=== PATIENT | female | born 1955 | race Caucasian/White ===

== ENCOUNTER 2025-10-19 12:29 | Inpatient (IN) | payer MEDICARE ==
[~2025-10-19] VITALS: Ht 157.4 cm; Wt 93.0 kg
[~2025-10-19 12:29] MED LIST: COUMADIN2.5 M1; LOZOL1.25 MG; SYNTHROID,LEVO25 MCG; WARFARIN SOD5 MG
[2025-10-19 12:36] VITALS: BP 190/84
[2025-10-19] MEDS ORDERED: Acetaminophen/Oxycodone 5 MG/325 MG TABLET PO ONE (13:25)
[2025-10-19] MEDS ORDERED: TRANEXAMIC ACID IN NACL,ISO-OS 100 ML IV ONE (14:30)
[2025-10-19] MEDS ORDERED: PHYTONADIONE 5 MG in SODIUM CHLORIDE 0.9% 50 ML IV ONE (14:30)
[2025-10-19 14:35] LABS: BASO # 0.1 10*3/uL (0.0-0.1); BASO % 0.4 % (0.0-1.0); EOS # 0.2 10*3/uL (0.0-0.4); EOS % 1.6 % (1.0-4.0); MEAN CELL VOLUME 92.0 fl (81.0-99.0); MEAN CORPUSCULAR HGB 29.4 pg (27.0-31.0); MEAN PLATELET VOLUME 9.8 fl (9.6-12.3); MONO # 0.6 10*3/uL (0.1-1.0); MONO % 4.4 % (3.0-9.0); NEUT # 11.8 10*3/uL (2.3-7.9); NEUT % 83.2 % (47.0-73.0); NUCLEATED RED BLOOD CELL 0.0 % (0.0-0.0); NUCLEATED RED BLOOD CELL 0.0 10*3/uL (0.0-0.0); PLATELET COUNT AUTOMATED 218 10*3/uL (130-400); RED CELL DISTRI WIDTH 13.4 % (0-14.5)
[2025-10-19 14:53] LABS: BUN 20 mg/dl (9-23)
[2025-10-19] MEDS ORDERED: Acetaminophen/Hydrocodone 5 MG/325 MG TABLET PO PRN (15:40)
[2025-10-19] MEDS ORDERED: BISACODYL 10 MG SUPP R PRN (15:40)
[2025-10-19] MEDS ORDERED: ACETAMINOPHEN 325 MG TAB PO PRN (15:40)
[2025-10-19] MEDS ORDERED: BISACODYL 5 MG TAB PO PRN (15:40)
[2025-10-19] MEDS ORDERED: ACETAMINOPHEN 650 MG SUPP R PRN (15:40)
[2025-10-19] MEDS ORDERED: PHYTONADIONE 10 MG/ML AMP ONE (15:43)
[2025-10-19 16:00] VITALS: BP 145/76
[2025-10-19] MEDS ORDERED: LEVOTHYROXINE175 MCG PO (16:39)
[2025-10-19] MEDS ORDERED: INDAPAMIDE2.5 MG PO (16:39)
[2025-10-19] MEDS ORDERED: GLIPIZIDE5 MG PO (16:40)
[2025-10-19] MEDS ORDERED: Coumadin3 MG PO ×2 (17:16→17:17)
[2025-10-19 20:00] VITALS: BP 154/63
[2025-10-20] VITALS (12 sets, daily range): BP systolic 132–165; BP diastolic 50–73
[2025-10-20 06:25] LABS: ACT PARTIAL THROMBO TIME 33.0 SECONDS (20.0-32.1)
[2025-10-20 06:30] LABS: BUN 18 mg/dl (9-23)
[2025-10-20 06:31] LABS: FREE T4 1.32 ng/dl (0.89-1.76); LDL CHOLESTEROL 113 mg/dL (9-159); SGPT/ALT 136 U/L (5-49)
[2025-10-20 06:48] LABS: BASO # 0.1 10*3/uL (0.0-0.1); BASO % 0.4 % (0.0-1.0); EOS # 0.3 10*3/uL (0.0-0.4); EOS % 2.9 % (1.0-4.0); MEAN CELL VOLUME 91.6 fl (81.0-99.0); MEAN CORPUSCULAR HGB 29.3 pg (27.0-31.0); MEAN PLATELET VOLUME 10.3 fl (9.6-12.3); MONO # 0.9 10*3/uL (0.1-1.0); MONO % 7.7 % (3.0-9.0); NEUT # 8.4 10*3/uL (2.3-7.9); NEUT % 75.0 % (47.0-73.0); NUCLEATED RED BLOOD CELL 0.0 % (0.0-0.0); NUCLEATED RED BLOOD CELL 0.0 10*3/uL (0.0-0.0); PLATELET COUNT AUTOMATED 225 10*3/uL (130-400); RED CELL DISTRI WIDTH 13.5 % (0-14.5)
[2025-10-20 07:25] LABS: VITAMIN D, 25-HYDROXY 23.6 ng/mL (30-100)
[2025-10-20] MEDS ORDERED: glipiZIDE 5 MG TAB PO SCH (07:30)
[2025-10-20] MEDS ORDERED: SODIUM CHLORIDE 0.9% 1,000 ML IV ONE (08:05)
[2025-10-20] MEDS ORDERED: Cholecalciferol 2,000 UNIT TABLET (50 MCG) PO SCH (10:00)
[2025-10-20] MEDS ORDERED: INDAPAMIDE 2.5 MG TAB PO SCH (10:00)
[2025-10-20] MEDS ORDERED: TRANEXAMIC ACID IN NACL,ISO-OS 100 ML IV ONE ×2 (13:30→16:20)
[2025-10-20] MEDS ORDERED: Ropivacaine Hydrochloride 5 MG/ML 20 ML AMP IJ ONE (13:49)
[2025-10-20] MEDS ORDERED: Lactated Ringer's Solution 1,000 ML IV ONE ×2 (13:50→15:58)
[2025-10-20] MEDS ORDERED: Bupivacaine Hydrochloride/Ep2 30 ML VIAL ONE (14:24)
[2025-10-20] MEDS ORDERED: Water, Sterile 10 ML VIAL IV ONE (16:20)
[2025-10-20] MEDS ORDERED: Midazolam Hydrochloride 2 MG/2 ML VIAL IV ONE (17:00)
[2025-10-20] MEDS ORDERED: SUGAMMADEX SODIUM 200 MG/2 ML VIAL IV ONE (17:00)
[2025-10-20] MEDS ORDERED: Ondansetron Hydrochloride 4 MG/2 ML VIAL IV ONE (17:00)
[2025-10-20] MEDS ORDERED: SEVOFLURANE 250 ML BOT INH ONE (17:00)
[2025-10-20] MEDS ORDERED: ROCURONIUM BROMIDE 50 MG/5 ML SYRINGE IV ONE (17:00)
[2025-10-20] MEDS ORDERED: Dexamethasone Sodium Phospha 4 MG/ML VIAL IV ONE (17:00)
[2025-10-20] MEDS ORDERED: PROPOFOL 200 MG/20 ML VIAL IV ONE (17:00)
[2025-10-20] MEDS ORDERED: WARFARIN SODIUM 5 MG TAB PO ONE (18:00)
[2025-10-21] VITALS: BP 139/62
[2025-10-21 06:05] LABS: BUN 20 mg/dl (9-23)
[2025-10-21 06:32] LABS: BUN 20 mg/dl (9-23); SGPT/ALT 80 U/L (5-49)
[2025-10-21 08:00] VITALS: BP 131/59
[2025-10-21 12:00] VITALS: BP 132/69
[2025-10-21 16:00] VITALS: BP 120/45
[2025-10-21] MEDS ORDERED: WARFARIN SODIUM 5 MG TAB PO ONE (18:00)
[2025-10-21] MEDS ORDERED: WARFARIN SODIUM 3 MG TAB PO SCH (18:00)
[2025-10-21 20:00] VITALS: BP 151/52
[2025-10-22] VITALS: BP 128/47
[2025-10-22 06:05] LABS: BASO # 0.1 10*3/uL (0.0-0.1); BASO % 0.5 % (0.0-1.0); EOS # 0.2 10*3/uL (0.0-0.4); EOS % 1.5 % (1.0-4.0); MEAN CELL VOLUME 92.1 fl (81.0-99.0); MEAN CORPUSCULAR HGB 28.9 pg (27.0-31.0); MEAN PLATELET VOLUME 10.2 fl (9.6-12.3); MONO # 1.0 10*3/uL (0.1-1.0); MONO % 9.4 % (3.0-9.0); NEUT # 6.8 10*3/uL (2.3-7.9); NEUT % 63.5 % (47.0-73.0); NUCLEATED RED BLOOD CELL 0.0 % (0.0-0.0); NUCLEATED RED BLOOD CELL 0.0 10*3/uL (0.0-0.0); PLATELET COUNT AUTOMATED 241 10*3/uL (130-400); RED CELL DISTRI WIDTH 13.6 % (0-14.5)
[2025-10-22 08:00] VITALS: BP 141/52
[2025-10-22] MEDS ORDERED: DOCUSATE SODIUM 100 MG CAP PO PRN (08:10)
[2025-10-22 12:00] VITALS: BP 138/48
[2025-10-22] MEDS ORDERED: DEXTROSE 50% 25 GM/50 ML VIAL IV PRN (12:25)
[2025-10-22 16:00] VITALS: BP 118/52; BP 138/68
[2025-10-22] MEDS ORDERED: INSULIN LISPRO 1 UNIT/0.01 ML SQ SCH (16:30)
[2025-10-22] MEDS ORDERED: WARFARIN SODIUM 3 MG TAB PO SCH (18:00)
[2025-10-22] MEDS ORDERED: WARFARIN SODIUM 3 MG TAB PO ONE (18:00)
[2025-10-22 20:00] VITALS: BP 144/54
[2025-10-23] VITALS: BP 143/56
[2025-10-23 06:35] LABS: BASO # 0.1 10*3/uL (0.0-0.1); BASO % 0.5 % (0.0-1.0); EOS # 0.3 10*3/uL (0.0-0.4); EOS % 3.3 % (1.0-4.0); MEAN CELL VOLUME 92.3 fl (81.0-99.0); MEAN CORPUSCULAR HGB 29.3 pg (27.0-31.0); MEAN PLATELET VOLUME 10.1 fl (9.6-12.3); MONO # 0.9 10*3/uL (0.1-1.0); MONO % 8.8 % (3.0-9.0); NEUT # 6.6 10*3/uL (2.3-7.9); NEUT % 66.7 % (47.0-73.0); NUCLEATED RED BLOOD CELL 0.0 % (0.0-0.0); NUCLEATED RED BLOOD CELL 0.0 10*3/uL (0.0-0.0); PLATELET COUNT AUTOMATED 250 10*3/uL (130-400); RED CELL DISTRI WIDTH 14.0 % (0-14.5)
[2025-10-23 08:00] VITALS: BP 171/56
[2025-10-23 12:00] VITALS: BP 168/62
[2025-10-23] MEDS ORDERED: HYDROCODONE-AC1 EAC1 PO (15:34)
[2025-10-23] MEDS ORDERED: WARFARIN SODIUM 3 MG TAB PO SCH (18:00)
== END 2025-10-23 16:50 | disposition home health service (06) | DRG 481 ==
LOC: ED 12:29 → EDHOLD 15:25 → 4E 15:25 → 5E 15:25 → 4E 15:29 → 5E 10-22 14:42
PROVIDERS: Internal Medicine; Orthopaedic Surgery; Registered Nurse; ADMIT Internal Medicine; ATTEND Internal Medicine
PROC: 0QH706Z Insertion of Intramedullary Internal Fixation Device into Left Upper Femur, Open Approach (ICD-10-PCS; principal; 2025-10-20)
PROC: 3E0T3BZ Introduction of Anesthetic Agent into Peripheral Nerves and Plexi, Percutaneous Approach (ICD-10-PCS; 2025-10-20)
DX: S72.142A Displaced intertrochanteric fracture of left femur, initial encounter for closed fracture (principal); D68.51 Activated protein C resistance; E44.0 Moderate protein-calorie malnutrition; I10 Essential (primary) hypertension; E03.9 Hypothyroidism, unspecified; R73.9 Hyperglycemia, unspecified; D72.829 Elevated white blood cell count, unspecified; E55.9 Vitamin D deficiency, unspecified; R74.01 Elevation of levels of liver transaminase levels; R73.03 Prediabetes; Z88.8 Allergy status to other drugs, medicaments and biological substances; Z91.09 Other allergy status, other than to drugs and biological substances; Z79.899 Other long term (current) drug therapy; Z79.01 Long term (current) use of anticoagulants; Z82.0 Family history of epilepsy and other diseases of the nervous system; Z82.5 Family history of asthma and other chronic lower respiratory diseases; Z91.040 Latex allergy status; Z79.2 Long term (current) use of antibiotics; Z82.49 Family history of ischemic heart disease and other diseases of the circulatory system; W18.39XA Other fall on same level, initial encounter; Y93.89 Activity, other specified; Y92.89 Other specified places as the place of occurrence of the external cause; Y99.8 Other external cause status

== ENCOUNTER → 2025-11-05 | Outpatient (CLI) | payer MEDICARE ==
[~2025-11-05] MED LIST changes: +Coumadin3 MG PO; +GLIPIZIDE5 MG PO; +HYDROCODONE-AC1 EAC1 PO; +INDAPAMIDE2.5 MG PO; +LEVOTHYROXINE175 MCG PO
== END | disposition home or self-care (01) ==
LOC: ORTHO 02:12
PROVIDERS: ATTEND Orthopaedic Surgery
DX: S72.142A Displaced intertrochanteric fracture of left femur, initial encounter for closed fracture (principal); X58.XXXA Exposure to other specified factors, initial encounter; Y93.89 Activity, other specified; Y92.89 Other specified places as the place of occurrence of the external cause; Y99.8 Other external cause status